=== PATIENT | female | born 1975 | race Caucasian/White ===

== ENCOUNTER 2024-02-13 10:09 | Emergency (ER) | payer BC, OTHER ==
[2024-02-13 10:28] VITALS: PULSE 71; TEMP 98.8; O2SAT 98
--- NOTE | 2024-02-13 11:15 | ERPHSYRPT ---
- History of Present Illness Time Seen by Provider: 02/13/24 10:52 Source: patient Exam Limitations: no limitations Patient Subjective Stated Complaint: pt states that she was in [place] tending to her mother when she got an outbreak of shingles to her right side of her face, it has now crossed over to the other side and is going into her throat, pt was given Valtrex and some cream but is going to run out today Triage Nursing Assessment: Pt was brought to the ER by another, faraz mayo, rates face pain as 8/10, shingles to the right chin and cheek and pt states that it is going to the other side and down her throat causing it hard to swallow and to breath at times, doesn't appear to be in any distress Physician History: 48 years old female recently getting treatment for shingles with Valtrex and also amoxicillin for enlarged nodes on the left right upper neck presented in the ER with soreness on the left side of buccal mucosa/lips. Patient thinks that shingles have crossed on the left side. Also reports hurts to swallow. No fever or chills reported. No difficulty breathing. Allergies/Adverse Reactions: latex Allergy (Severe, Verified 02/13/24 10:28) Hives Penicillins Allergy (Severe, Verified 02/13/24 10:28) Hives Home Medications: Albuterol Sulfate [Proair Respiclick] 2 puff IH UD 12/13/23 [History] Cyclobenzaprine HCl 10 mg [Cyclobenzaprine 10 MG] 10 mg PO UD PRN 12/13/23 [History] Famotidine 20 mg [Pepcid 20 MG] 20 mg PO DAILY 12/13/23 [History] Fenofibrate Nanocrystallized [Fenofibrate] 145 mg PO UD 12/13/23 [History] Fluticasone Propion/Salmeterol [Fluticasone-Salmeterol 230-21] 1 puff IH UD 12/13/23 [History] Meclizine HCl 25 mg [Antivert 25 mg] 25 mg PO UD 12/13/23 [History] Psyllium Husk [Fiber] 1 dose PO UD 12/13/23 [History] Cetirizine HCl 10 mg PO DAILY 02/13/24 [History] Fluticasone/Umeclidin/Vilanter [Trelegy Ellipta 100-62.5-25] 1 inh PO DAILY 02/13/24 [History] Lidocaine HCl Viscous [XYLOCAINE HCl Viscous *] 10 ml PO Q2H 02/13/24 [History] Rosuvastatin Calcium 20 mg PO DAILY 02/13/24 [History] Valacyclovir HCl [valACYclovir] 1,000 mg PO TID 02/13/24 [History] Hx Influenza Vaccination/Date Given: No Hx Pneumococcal Vaccination/Date Given: No Travel Risk - International Travel Have you traveled outside of the country in past 3 weeks: No - Emerging Infectious Disease Are you exhibiting symptoms associated with any current EIDs: No - Review of Systems Constitutional: No Symptoms Eyes: No Symptoms Ears, Nose, & Throat: Mouth Pain, Mouth Swelling, Throat Pain Respiratory: No Symptoms Cardiac: No Symptoms Abdominal/Gastrointestinal: No Symptoms Skin: Rash Neurological: No Symptoms Endocrine: No Symptoms - Past Medical History Pertinent Past Medical History: Yes Neurological History: Migraines ENT History: No Pertinent History Cardiac History: High Cholesterol, Hypertension Respiratory History: Asthma, COPD, Emphysema Endocrine Medical History: Diabetes Type II Musculoskeletal History: Osteoarthritis GI Medical History: No Pertinent History, GERD, Hernia Psycho-Social History: Anxiety, Depression Other Medical History: PMH: VERTIGO, OA OF HANDS. PSH: R SHOULDER ORIF (10'), R FOOT ORIF (10'), L RTC REPAIR, TONSILLECTOMY, KIDNEY STONES, PARTIAL HYSTERECTOMY. shingles - Past Surgical History Past Surgical History: Yes Cardiac: No Pertinent History Respiratory: No Pertinent History Gastrointestinal: No Pertinent History Genitourinary: No Pertinent History Musculoskeletal: Orthopedic Surgery Female Surgical History: Hysterectomy Other Surgical History: RIGHT ARM AND FOOT SURGERY METAL PLATES AND SCREWS. KIDNEY STONE SURGERY 2022 - Female History Hx Now: No (hysterectomy) - Social History Smoking Status: Current every day smoker Exposure to second hand smoke: Yes Drug Use: none - Nursing Vital Signs Nursing Vital Signs: Initial Vital Signs Temperature 98.8 F 02/13/24 10:20 Pulse Rate 71 02/13/24 10:20 Blood Pressure 111/75 02/13/24 10:20 O2 Sat by Pulse Oximetry 98 02/13/24 10:20 Pain Scale Pain Intensity 8 - Physical Exam General Appearance: no apparent distress, alert Eye Exam: bilateral eye: normal inspection, PERRL, EOMI Ear Exam: bilateral ear: auricle normal, canal normal, TM normal Nasal Exam: normal inspection Throat Exam: moist mucus membranes (Diffuse white coating of the tongue, pharynx to some extent along the lips. In the buccal mucosa. With scratching raw surfaces exposed.), pharynx swelling, pharynx tenderness Neck Exam: normal inspection, non-tender, supple, full range of motion Cardiovascular/Respiratory Exam: normal breath sounds, regular rate/rhythm Neurologic Exam: alert, oriented x 3, cooperative Skin Exam: normal color SpO2 Interpretation: normal SpO2: 98 O2 Delivery: Room Air - Progress Progress: unchanged Progress Note: 02/13/24 11:16 48 years old is evaluated for soreness in the mouth and difficulty swallowing. Patient has white coating which I believe patient has thrush, will start her on nystatin swish and swallow. Outpatient follow-up recommended. Counseled pt/family regarding: diagnosis, need for follow-up Medical Desision Making - Diagnostic Testing Diagnostic test were ordered, analyzed, and reviewed by me: No - Risk of complications The pt has a mod risk of morbidity or mortality based on: Need for prescription drug management - Departure Departure Disposition: Home Clinical Impression: Oral thrush Condition: Stable Critical Care Time: No Referrals: ARA BLACK DO [Primary Care Provider] - Follow up with PCP 1 day Instructions: Thrush (DC) Additional Instructions: Follow-up with primary care for reevaluation. Return to ER for worsening of the rash/whitening. Prescriptions: Clotrimazole 10 mg MM QID 7 Days #30 leta Nystatin 400,000 unit PO QID 7 Days #120 ml
[2024-02-13 11:23] VITALS: BP 110/68
== END 2024-02-13 11:25 | disposition home or self-care (01) ==
LOC: ED 10:09
DX: B37.0 Candidal stomatitis (principal); B02.9 Zoster without complications
CPT/HCPCS: 99281